=== PATIENT | female | born 1990 | race African-American/Black ===

== ENCOUNTER 2019-05-07 06:41 | Emergency (ER) | payer SELFPAY ==
[~2019-05-07] VITALS: Ht 165.1 cm; Wt 79.0 kg
[2019-05-07] MEDS ORDERED: SODIUM CHLORIDE 0.9% 1,000 ML IV ONE (07:28)
[2019-05-07] MEDS ORDERED: ACETAMINOPHEN 325MG TABLET PO PRN (07:30)
[2019-05-07 08:48] LABS: BASOPHILS % 0.7 % (0.0-2.0); EOSINOPHILS % 1.8 % (0.0-5.0); HEMOGLOBIN. 12.3 g/dL (12.0-16.0); LYMPHOCYTES % 9.8 % (20.0-50.0); MEAN CORPUSCULAR HEMOGLOBIN 27.7 pg (28.0-32.0); MEAN CORPUSCULAR VOLUME 85.6 fL (81.0-99.0); MEAN PLATELET VOLUME 8.8 fl (7.4-10.4); MONOCYTES % 6.4 % (2.0-8.0); NEUTROPHILS % 81.3 % (40.0-76.0); PLATELET 298 x1000/uL (130-400); RED BLOOD CELL COUNT 4.43 mill/uL (4.2-5.4); RED CELL DISTRIBUTION WIDTH 14.8 % (11.6-14.6)
[2019-05-07 08:53] LABS: CHLORIDE 109 mEq/L (98-107)
[2019-05-07 09:16] LABS: B-HCG QUANTITATIVE 51221 mIU/mL (<3)
[2019-05-07] MEDS ORDERED: TRAMADOL 50MG TABLET PO ONE (11:30)
[2019-05-07] MEDS ORDERED: TETRACAINE 0.5% OPHTH DROPS 4ML LEFTEYE ONE (12:15)
[2019-05-07] MEDS ORDERED: FLUORESCEIN SODIUM 1MG/STRIP LEFTEYE ONE (12:15)
[2019-05-07 16:30] VITALS: BP 111/68
== END 2019-05-07 17:22 | disposition home or self-care (01) ==
LOC: ER 06:41
DX: O9A.311 Physical abuse complicating pregnancy, first trimester (principal); S06.0X0A Concussion without loss of consciousness, initial encounter; S05.12XA Contusion of eyeball and orbital tissues, left eye, initial encounter; Z3A.09 9 weeks gestation of pregnancy; Y08.89XA Assault by other specified means, initial encounter; Y93.89 Activity, other specified; Y92.89 Other specified places as the place of occurrence of the external cause; Y99.8 Other external cause status
CPT/HCPCS: 36415; 70450; 70486; 76801; 80053; 81025; 84702; 85025; 86850; 86870; 86900; 86901; 99284; J7030; Z7610